=== PATIENT | female | born 1975 | race Caucasian/White ===

== ENCOUNTER 2016-09-27 09:33 | Emergency (ER) | payer OTHER ==
--- NOTE | 2016-09-27 10:43 | UC ---
Complaint Female HPI - HPI Summary HPI Summary: 40 y/o female presents to the urgent care c/o some blisters in her labia majora after having intercourse last night. Pt reports she is in a 5 year relationship however last year she was Dx with Madhav and got Tx. Now she is concern her partner has slept with someone else and she thinks now she has herpes since she has a painful blister in her vulva she noticed this morning. Pt states Pain 8/10 at touch, denies vaginal discharge, bleeding urinary symptoms, fever, SOB, N/V/D. Pt has not other complains. - History Of Current Complaint Chief Complaint: UCGU Stated Complaint: PERSONAL Time Seen by Provider: 09/27/16 10:31 Hx Obtained From: Patient Hx Last Menstrual Period: 09/21/16 ?: No Onset/Duration: Sudden Onset, Lasting Hours, Still Present Timing: Constant Severity Initially: Mild Severity Currently: Moderate Pain Intensity: 8 Pain Scale Used: 0-10 Numeric Character: Burning Aggravating Factor(s): [place] Alleviating Factor(s): Nothing Associated Signs And Symptoms: Positive: Genital Blisters. Negative: Fever, Back Pain, Vaginal Bleeding/Discharge, Vaginal Discharge, Nausea, Vomiting(# Of Episodes =) Related Hx: Prior STD Hx - chlamydia last year got treatment - Risk Factors Ectopic Risk Factor: Negative Ovarian Torsion Risk Factor: Negative, Reproductive Age - Allergies/Home Medications Allergies/Adverse Reactions: Allergies Allergy/AdvReac Type Severity Reaction Status Date / Time No Known Allergies Allergy Verified 09/27/16 09:53 PMH/Surg Hx/FS Hx/Imm Hx Previously Healthy: Yes - Surgical History Surgical History: None - Family History Known Family History: Positive: Cardiac Disease, Hypertension, Diabetes - Social History Occupation: Employed Full-time Lives: With Family Alcohol Use: None Substance Use Type: None Smoking Status (MU): Heavy Every Day Tobacco Smoker Type: Cigarettes Amount Used/How Often: 1/2 pack daily Review of Systems Constitutional: Negative Skin: Rash - blister in labia majora Eyes: Negative ENT: Negative Respiratory: Negative Cardiovascular: Negative Gastrointestinal: Negative Genitourinary: Negative Motor: Negative Neurovascular: Negative Musculoskeletal: Negative Neurological: Negative Psychological: Negative All Other Systems Reviewed And Are Negative: Yes Physical Exam Triage Information Reviewed: Yes Appearance: Well-Appearing, No Pain Distress, Well-Nourished, Obese Vital Signs: Initial Vital Signs Pulse 72 09/27/16 09:54 Resp 16 09/27/16 09:54 BP 127/83 09/27/16 09:54 Pulse Ox 98 09/27/16 09:54 Vital Signs Reviewed: Yes Eye Exam: Normal Eyes: Positive: Conjunctiva Clear - PERRLA, EOMI, fundi grossly normal ENT Exam: Normal ENT: Positive: Normal ENT inspection, Hearing grossly normal, Pharynx normal, TMs normal Dental Exam: Normal Neck exam: Normal Neck: Positive: Supple, Nontender, No Lymphadenopathy Respiratory Exam: Normal Respiratory: Positive: Chest non-tender, Lungs clear, Normal breath sounds Cardiovascular Exam: Normal Cardiovascular: Positive: RRR, No Murmur, Pulses Normal Abdominal Exam: Normal Abdomen Description: Positive: Nontender, No Organomegaly, Soft, Other: - Pelvic: External genitalia within normal limits. There is no lesions there is no masses noted. Speculum exam: The vaginal castillo are within normal limits w/ normal clear vaginal discharge, no the lesions or rashes. The cervix is closed with no lesions or masses. There is no CMT's, and no adnexal masses. Sample sent to [facility] for PAP< HPV and G/C and vaginosis panel. Rectal: No lesions, no hemorrhoids,. Negative: CVA Tenderness (R), CVA Tenderness (L) Bowel Sounds: Positive: Present Musculoskeletal Exam: Normal Neurological Exam: Normal Psychological Exam: Normal Skin Exam: Normal Complaint Female Dx - Course Course Of Treatment: 40 y/o female presents to the urgent care c/o some blisters in her labia majora after having intercourse last night. Pt reports she is in a 5 year relationship however last year she was Dx with Madhav and got Tx. Now she is concern her partner has slept with someone else and she thinks now she has herpes since she has a painful blister in her vulva she noticed this morning. Pt states Pain 8/10 at touch, denies vaginal discharge, bleeding urinary symptoms, fever, SOB, N/V/D. Hx obtained. PE abnormal finding : Pelvic: I was asssited by nurse Addis. External genitalia with small blister w/ erythema in the left labia majora, tender to palpation, no masses noted. Speculum exam: The vaginal castillo are within normal limits w/ normal white vaginal discharge with fihy order, no the lesions or rashes. The cervix is closed with no lesions or masses. There is no CMT's, and no adnexal masses. Sample sent to Lab for G/C and vaginosis panel, wound culture for the plester sent to lab r/o herpes. Rectal: No lesions, no hemorrhoids. UA ordered, negative, test: negative. Most likely Bacterial vaginosis. PT RX Metronidazole vaginal applicator and Acyclovir profilactically for herpes. Advised if anything in the lab comes back abnormal she will receive a call from us for further treament. Pt understood and agreed. Left the clinic ambulating - Differential Dx/Diagnosis Differential Diagnosis/HQI/PQRI: Cervicitis, Pelvic Inflammatory Disease, , Sexually Transmitted Disease, Urinary Tract Infection Provider Diagnoses: 1-Bacterial Vaginosis,. 2- Genital lesion r/o herpes. 3- STD screening Discharge - Discharge Plan Condition: Stable Disposition: HOME Prescriptions: Acyclovir* [Zovirax TAB*] 400 mg PO QID #28 tab metroNIDAZOLE VAGINAL 0.75%* 1 applic VAGINAL BEDTIME #1 box Referrals: Milo Salinas DO [Primary Care Provider] - If Needed Additional Instructions: Please take medications as instructed and finish the full course of treatment to avoid recurrent infection. Specimen sent to lab if anything else appears abnormal you will receive a call from us for further treatment. If you do not improve or if symptoms worsen after the course of antibiotics, you should either follow up with your PCP or return to the urgent care for further evaluation and treatment. It is important you f/u with your [facility] for a routine a PAP.
[2016-09-27 11:19] VITALS: BP 127/83
[2016-09-27] MEDS ORDERED: Acyclovir* 400 MG TAB PO SCH (14:00)
== END 2016-09-27 11:18 | disposition home or self-care (01) ==
LOC: UCCORT 09:33
DX: N76.0 Acute vaginitis (principal); Z11.3 Encounter for screening for infections with a predominantly sexual mode of transmission; Z32.02 Encounter for pregnancy test, result negative; E66.9 Obesity, unspecified; F17.210 Nicotine dependence, cigarettes, uncomplicated
CPT/HCPCS: 81003; 84702; 87480; 87491; 87510; 87529; 87591; 87661; 99202; G0463

== ENCOUNTER 2018-11-15 09:28 | Emergency (ER) | payer OTHER ==
[2018-11-15 09:58] VITALS: BP 106/71
--- NOTE | 2018-11-15 10:38 | UC ---
Complaint Female HPI - HPI Summary HPI Summary: Pt presents with c/o of worsening of psoriasis on pelvis, genitals and inner upper thighs. Pt also concerned that her significant other has exposed her to a STD as she reports that the last time she had a psoriasis "flare" she tested positive for gonorrhea, chlamydia and on another separate occasion of psoriasis flare she tested positive for genital herpes. Pt states her genital area feels "raw" and tender. - History Of Current Complaint Chief Complaint: UCGU Stated Complaint: PERSONAL Time Seen by Provider: 11/15/18 09:50 Hx Obtained From: Patient Hx Last Menstrual Period: 10/15/18 ?: No Onset/Duration: Sudden Onset, Lasting Days, Still Present Timing: Constant Severity Initially: Mild Severity Currently: Moderate Pain Intensity: 0 Character: Sharp, Dull, Burning Aggravating Factor(s): Movement, [place] Alleviating Factor(s): Nothing Associated Signs And Symptoms: Positive: Vaginal Discharge - Risk Factors Ectopic Risk Factor: Negative Ovarian Torsion Risk Factor: Negative - Allergies/Home Medications Allergies/Adverse Reactions: Allergies Allergy/AdvReac Type Severity Reaction Status Date / Time No Known Allergies Allergy Verified 11/15/18 09:51 Home Medications: Home Medications Psoriasis Shampoo 1 applic TOPICAL SEE INSTRUCTIONS 11/15/18 [History] PMH/Surg Hx/FS Hx/Imm Hx Previously Healthy: Yes - Surgical History Surgical History: Yes Surgery Procedure, Year, and Place: Left Leg Cystectomy, ~2009, [place]; Sterilization (? Procedure), ~2002, [place] - Family History Known Family History: Positive: Cardiac Disease, Hypertension, Diabetes - Social History Occupation: Works From/At Home Lives: With Family Alcohol Use: Occasionally Substance Use Type: None Smoking Status (MU): Current Some Day Smoker Type: Cigars Amount Used/How Often: 1/2 pack daily Length of Time of Smoking/Using Tobacco: 1/2 PPD x 27 Years Have You Smoked in the Last Year: Yes Review of Systems All Other Systems Reviewed And Are Negative: Yes Constitutional: Positive: Negative Skin: Positive: Rash - psoriasis "outbreak" on lower abdomen, genitals and inner upper thighs. ENT: Positive: Negative Respiratory: Positive: Negative Cardiovascular: Positive: Negative Gastrointestinal: Positive: Negative Genitourinary: Positive: Vaginal/Penile Burning, Vaginal/Penile Itching, Vaginal /Penile Discharge, Vaginal/Penile Tenderness Motor: Positive: Negative Neurovascular: Positive: Negative Musculoskeletal: Positive: Negative Neurological: Positive: Negative Psychological: Positive: Negative Is Patient Immunocompromised?: No Physical Exam Triage Information Reviewed: Yes Appearance: Well-Appearing - pt is tearful during part of the PE Vital Signs: Initial Vital Signs Temp 98.9 F 11/15/18 09:49 Pulse 85 11/15/18 09:49 Resp 16 11/15/18 09:49 BP 106/71 11/15/18 09:49 Pulse Ox 99 11/15/18 09:49 Vital Signs Reviewed: Yes Eye Exam: Normal ENT: Positive: Hearing grossly normal Neck exam: Normal Respiratory: Positive: No respiratory distress Abdomen Description: Positive: Nontender Pelvic Exam: Positive: Speculum Exam Normal, Discharge Musculoskeletal Exam: Normal Neurological Exam: Normal Psychological Exam: Normal Skin: Positive: Rashes - psoriasis plaques on covering pelvis, labia majora, perineum upper and inner thighs Complaint Female Dx - Course Course Of Treatment: I discussed with the pt the option to presumptively be treated for GC/Chlamydia but pt declined wants to wait for test results. I also discussed a recommendation to follow up with regulator assembler and pt verbalized understanding and agreed to plan of care. - Differential Dx/Diagnosis Differential Diagnosis/HQI/PQRI: Sexually Transmitted Disease, Urinary Tract Infection Provider Diagnosis: Vaginitis, Psoriasis Discharge ED - Sign-Out/Discharge Documenting (check all that apply): Patient Departure All imaging exams completed and their final reports reviewed: No Studies - Discharge Plan Condition: Stable Disposition: HOME Prescriptions: metroNIDAZOLE VAGINAL 0.75%* 1 applic VAGINAL BEDTIME #5 tube Patient Education Materials: Psoriasis (ED), Vaginitis (ED) Referrals: Bette Danielson MD [Medical Doctor] - If Needed Milo Salinas DO [Primary Care Provider] - If Needed Petey Maldonado MD [Medical Doctor] - If Needed - Billing Disposition and Condition Condition: STABLE Disposition: Home
[2018-11-16 14:04] LABS: Chlamydia trachomatis NAA Negative (Negative); Neisseria gonorrhoeae (GC) NAA Negative (Negative)
== END 2018-11-15 10:52 | disposition home or self-care (01) ==
LOC: UCCORT 09:28
DX: N76.0 Acute vaginitis (principal); L40.9 Psoriasis, unspecified; F17.290 Nicotine dependence, other tobacco product, uncomplicated
CPT/HCPCS: 81003; 84702; 87480; 87491; 87510; 87591; 87661; 99212; G0463